=== PATIENT | female | born 1950 | race Asian ===

== ENCOUNTER 2018-01-03 14:45 | Emergency (ER) | payer MEDICARE, MEDICAID ==
[~2018-01-03] VITALS: Ht 152.4 cm; Wt 57.0 kg
[~2018-01-03 14:45] MED LIST: ASPI-611 PO; ATEN50TA2 PO; ATOR40TA PO; CLOP75TA15 PO; HYDR-3972 PO
[2018-01-03 16:45] LABS: BASOPHILS % (AUTO) 0.3 % (0-1); EOSINOPHILS # (AUTO) 0.1 X10'3 (0-0.9); EOSINOPHILS % (AUTO) 0.9 % (0-6); HEMATOCRIT 38.6 % (35.0-45.0); HEMOGLOBIN 13.1 g/dl (12.0-16.0); LYMPHOCYTES % (AUTO) 23.7 % (21-51); MEAN CORPUSCULAR HEMOGLOBIN 31.9 PG (27.0-31.0); MEAN CORPUSCULAR HGB CONC 33.8 % (33.0-36.5); MEAN CORPUSCULAR VOLUME 94.1 FL (78-98); MEAN PLATELET VOLUME 7.5 FL (7.4-10.4); MONOCYTES # (AUTO) 0.9 X10'3 (0-0.9); MONOCYTES % (AUTO) 11.3 % (2-12); NEUTROPHILS # (AUTO) 5.4 X10'3 (1.8-7.7); NEUTROPHILS % (AUTO) 63.8 % (42-75); PLATELET COUNT 176 X10'3 (140-440); RED CELL DISTRIBUTION WIDTH 13.9 % (11.5-14.5); WHITE BLOOD COUNT 8.4 X10'3 (4.5-11.0)
[2018-01-03 17:06] LABS: ALANINE AMINOTRANSFERASE 41 U/L (12-78); ALBUMIN 4.1 G/DL (3.4-5.0); ALBUMIN/GLOBULIN RATIO 0.9 (1.1-1.5); ALKALINE PHOSPHATASE 58 IU/L (46-116); ANION GAP 11 (8-16); ASPARTATE AMINO TRANSFERASE 43 U/L (10-37); BILIRUBIN,TOTAL 0.5 MG/DL (0.1-1.0); BLOOD UREA NITROGEN 19 MG/DL (7-18); BUN/CREATININE RATIO 19.2 (6.6-38.0); CHLORIDE 100 MMOL/L (99-107); CREATININE 0.99 MG/DL (0.40-0.90); GLUCOSE 109 MG/DL (70-104); POTASSIUM 4.4 MMOL/L (3.5-5.1); SODIUM 138 MMOL/L (135-145); TOTAL CARBON DIOXIDE 27.3 MMOL/L (24-32); TOTAL PROTEIN 8.5 G/DL (6.4-8.2); eGFR 56 ML/MIN
[2018-01-03] MEDS ORDERED: AZIT500T5 PO (21:04)
[2018-01-03 21:37] VITALS: BP 136/52
== END 2018-01-03 21:39 | disposition home or self-care (01) ==
LOC: ER 14:45
DX: J44.9 Chronic obstructive pulmonary disease, unspecified (principal); E78.00 Pure hypercholesterolemia, unspecified; I10 Essential (primary) hypertension; I25.2 Old myocardial infarction; G89.29 Other chronic pain; E11.9 Type 2 diabetes mellitus without complications; Z95.1 Presence of aortocoronary bypass graft; Z86.73 Personal history of transient ischemic attack (TIA), and cerebral infarction without residual deficits; Z79.82 Long term (current) use of aspirin; Z88.8 Allergy status to other drugs, medicaments and biological substances
CPT/HCPCS: 36415; 71046; 80053; 83605; 85025; 87040; 87502; 87503; 99285

== ENCOUNTER 2018-03-17 15:08 | Emergency (ER) | payer MEDICARE, MEDICAID ==
[~2018-03-17] VITALS: Ht 152.4 cm; Wt 55.0 kg
[~2018-03-17 15:08] MED LIST changes: +AZIT500T5 PO
[2018-03-17 15:45] LABS: BASOPHILS % (AUTO) 0.4 % (0-1); EOSINOPHILS # (AUTO) 0.1 X10'3 (0-0.9); EOSINOPHILS % (AUTO) 1.7 % (0-6); HEMATOCRIT 30.9 % (35.0-45.0); HEMOGLOBIN 10.3 g/dl (12.0-16.0); LYMPHOCYTES % (AUTO) 39.1 % (21-51); MEAN CORPUSCULAR HEMOGLOBIN 31.6 PG (27.0-31.0); MEAN CORPUSCULAR HGB CONC 33.3 % (33.0-36.5); MEAN CORPUSCULAR VOLUME 95.1 FL (78-98); MEAN PLATELET VOLUME 7.3 FL (7.4-10.4); MONOCYTES # (AUTO) 0.4 X10'3 (0-0.9); MONOCYTES % (AUTO) 5.4 % (2-12); NEUTROPHILS # (AUTO) 4.1 X10'3 (1.8-7.7); NEUTROPHILS % (AUTO) 53.4 % (42-75); PLATELET COUNT 208 X10'3 (140-440); RED BLOOD COUNT 3.25 X10'6 (4.20-5.60); RED CELL DISTRIBUTION WIDTH 14.2 % (11.5-14.5); WHITE BLOOD COUNT 7.6 X10'3 (4.5-11.0)
[2018-03-17 15:55] LABS: PARTIAL THROMBOPLASTIN TIME 24 SECONDS (22-32)
[2018-03-17 15:58] LABS: ALANINE AMINOTRANSFERASE 22 U/L (12-78); ALBUMIN 3.7 G/DL (3.4-5.0); ALBUMIN/GLOBULIN RATIO 1.2 (1.1-1.5); ALKALINE PHOSPHATASE 60 IU/L (46-116); ANION GAP 10 (8-16); ASPARTATE AMINO TRANSFERASE 17 U/L (10-37); BILIRUBIN,TOTAL 0.3 MG/DL (0.1-1.0); BLOOD UREA NITROGEN 24 MG/DL (7-18); BUN/CREATININE RATIO 18.5 (6.6-38.0); CALCIUM 8.7 MG/DL (8.5-10.1); CHLORIDE 103 MMOL/L (99-107); GLUCOSE 219 MG/DL (70-104); POTASSIUM 4.7 MMOL/L (3.5-5.1); SODIUM 137 MMOL/L (135-145); TOTAL CARBON DIOXIDE 24.4 MMOL/L (24-32); TOTAL PROTEIN 6.8 G/DL (6.4-8.2); eGFR 41 ML/MIN
[2018-03-17 16:03] LABS: TROPONIN I < 0.04 NG/ML (0.0-0.05)
[2018-03-17] MEDS ORDERED: ondansetron/PF 4mg/2ml inj IV ONE (19:00)
[2018-03-17] MEDS ORDERED: morphine 4 MG/ML inj SYRINge IV PRN (19:00)
[2018-03-17 19:41] VITALS: BP 188/55
== END 2018-03-17 23:47 | disposition home or self-care (01) ==
LOC: ER 15:09
DX: H53.2 Diplopia (principal); R51 Headache; E11.9 Type 2 diabetes mellitus without complications; I25.2 Old myocardial infarction; E78.00 Pure hypercholesterolemia, unspecified; J44.9 Chronic obstructive pulmonary disease, unspecified; G89.29 Other chronic pain; Z86.73 Personal history of transient ischemic attack (TIA), and cerebral infarction without residual deficits; Z95.1 Presence of aortocoronary bypass graft; Z79.02 Long term (current) use of antithrombotics/antiplatelets
CPT/HCPCS: 36415; 71045; 80053; 84484; 85025; 85610; 85730; 93005; 96374; 96375; 99285; J2270; J2405

== ENCOUNTER 2018-06-09 00:38 | Emergency (ER) | payer MEDICARE, MEDICAID ==
[~2018-06-09] VITALS: Ht 167.6 cm; Wt 40.0 kg
[2018-06-09 01:16] LABS: BASOPHILS # (AUTO) 0.1 X10'3 (0-0.2); BASOPHILS % (AUTO) 0.9 % (0-1); EOSINOPHILS # (AUTO) 0.1 X10'3 (0-0.9); EOSINOPHILS % (AUTO) 0.9 % (0-6); HEMATOCRIT 36.3 % (35.0-45.0); HEMOGLOBIN 12.2 g/dl (12.0-16.0); LYMPHOCYTES % (AUTO) 36.9 % (21-51); MEAN CORPUSCULAR HGB CONC 33.7 % (33.0-36.5); MEAN PLATELET VOLUME 7.9 FL (7.4-10.4); MONOCYTES # (AUTO) 0.5 X10'3 (0-0.9); MONOCYTES % (AUTO) 6.5 % (2-12); NEUTROPHILS # (AUTO) 4.6 X10'3 (1.8-7.7); NEUTROPHILS % (AUTO) 54.8 % (42-75); PLATELET COUNT 218 X10'3 (140-440); RED BLOOD COUNT 3.82 X10'6 (4.20-5.60); RED CELL DISTRIBUTION WIDTH 12.3 % (11.5-14.5); WHITE BLOOD COUNT 8.3 X10'3 (4.5-11.0)
[2018-06-09 02:02] LABS: CLARITY,URINE CLEAR (Clear); COLOR,URINE STRAW (Yellow); GLUCOSE, URINE NEGATIVE (Neg); KETONES,URINE NEGATIVE (Neg); LEUKOCYTE ESTERASE ,URINE SMALL (Neg); NITRITES, URINE NEGATIVE (Neg); OCCULT BLOOD,URINE NEGATIVE (Neg); PH,URINE 5.5 (4.8-8.0); PROTEIN,URINE NEGATIVE (Neg); UA COLLECTION TYPE VOIDED; UROBILINOGEN,URINE 0.2 E.U/dL (0.2-1.0)
[2018-06-09 02:03] LABS: BACTERIA,URINE NONE SEEN /HPF (Neg); RBC,URINE NONE SEEN /HPF (0-2); SQUAMOUS EPITHELIAL CELL,UR FEW /LPF (FEW)
[2018-06-09 02:04] LABS: URINE AMPHETAMINE SCREEN NEGATIVE (Neg); URINE BARBITUATE SCREEN NEGATIVE (Neg); URINE BENZODIAZEPINES SCREEN NEGATIVE (Neg); URINE CANNABINOID SCREEN NEGATIVE (Neg); URINE COCAINE SCREEN NEGATIVE (Neg); URINE METHADONE SCREEN NEGATIVE (Neg); URINE OPIATE SCREEN NEGATIVE (Neg); URINE PHENCYCLIDINE SCREEN NEGATIVE (Neg)
[2018-06-09 02:13] LABS: ALANINE AMINOTRANSFERASE 29 U/L (12-78); ALBUMIN 4.1 G/DL (3.4-5.0); ALBUMIN/GLOBULIN RATIO 1.1 (1.1-1.5); ALKALINE PHOSPHATASE 64 IU/L (46-116); ANION GAP 11 (8-16); ASPARTATE AMINO TRANSFERASE 21 U/L (10-37); BILIRUBIN,TOTAL 0.4 MG/DL (0.1-1.0); BLOOD UREA NITROGEN 20 MG/DL (7-18); BUN/CREATININE RATIO 17.4 (6.6-38.0); CALCIUM 9.4 MG/DL (8.5-10.1); CHLORIDE 104 MMOL/L (99-107); CREATININE 1.15 MG/DL (0.40-0.90); GLUCOSE 95 MG/DL (70-104); POTASSIUM 4.6 MMOL/L (3.5-5.1); SODIUM 140 MMOL/L (135-145); TOTAL CARBON DIOXIDE 24.6 MMOL/L (24-32); eGFR 47 ML/MIN
[2018-06-09 02:22] LABS: MAGNESIUM 1.9 MG/DL (1.5-2.4); PHOSPHORUS 4.1 MG/DL (2.3-4.5)
[2018-06-09 02:23] LABS: ETHANOL < 0.010 GM/DL (0.0-0.010)
[2018-06-09] MEDS ORDERED: hyDRALAzine 10mg tablet PO SCH (02:55)
[2018-06-09 03:56] VITALS: BP 169/64
== END 2018-06-09 04:05 | disposition home or self-care (01) ==
LOC: ER 00:38
DX: R53.1 Weakness (principal); E78.00 Pure hypercholesterolemia, unspecified; I10 Essential (primary) hypertension; I25.2 Old myocardial infarction; J44.9 Chronic obstructive pulmonary disease, unspecified; G89.29 Other chronic pain; F17.210 Nicotine dependence, cigarettes, uncomplicated; Z86.73 Personal history of transient ischemic attack (TIA), and cerebral infarction without residual deficits; Z88.5 Allergy status to narcotic agent; Z88.8 Allergy status to other drugs, medicaments and biological substances; Z79.82 Long term (current) use of aspirin; Z79.2 Long term (current) use of antibiotics; Z79.899 Other long term (current) drug therapy
CPT/HCPCS: 36415; 70450; 71045; 80053; 80305; 80320; 81001; 82948; 83735; 84100; 84443; 84484; 85025; 87088; 93005; 99285

== ENCOUNTER 2019-01-08 11:07 | Emergency (ER) | payer MEDICARE, MEDICAID ==
[~2019-01-08] VITALS: Ht 152.4 cm; Wt 54.5 kg
[2019-01-08 11:48] LABS: BASOPHILS % (AUTO) 0.6 % (0-1); EOSINOPHILS % (AUTO) 0.6 % (0-6); HEMATOCRIT 35.2 % (35.0-45.0); LYMPHOCYTES % (AUTO) 27.1 % (21-51); MEAN CORPUSCULAR HEMOGLOBIN 32.2 PG (27.0-31.0); MEAN CORPUSCULAR HGB CONC 34.1 g/dL (33.0-36.5); MEAN CORPUSCULAR VOLUME 94.3 FL (78-98); MEAN PLATELET VOLUME 7.4 FL (7.4-10.4); MONOCYTES # (AUTO) 0.4 X10'3 (0-0.9); MONOCYTES % (AUTO) 5.7 % (2-12); NEUTROPHILS # (AUTO) 4.9 X10'3 (1.8-7.7); PLATELET COUNT 221 X10'3 (140-440); RED BLOOD COUNT 3.74 X10'6 (4.20-5.60); RED CELL DISTRIBUTION WIDTH 13.1 % (11.5-14.5); WHITE BLOOD COUNT 7.5 X10'3 (4.5-11.0)
[2019-01-08 12:00] LABS: ALANINE AMINOTRANSFERASE 29 U/L (12-78); ALBUMIN 3.9 G/DL (3.4-5.0); ALBUMIN/GLOBULIN RATIO 1.1 (1.1-1.5); ALKALINE PHOSPHATASE 64 IU/L (46-116); ANION GAP 8 (8-16); ASPARTATE AMINO TRANSFERASE 21 U/L (10-37); BILIRUBIN,TOTAL 0.3 MG/DL (0.1-1.0); BLOOD UREA NITROGEN 15 MG/DL (7-18); BUN/CREATININE RATIO 13.8 (6.6-38.0); CALCIUM 9.3 MG/DL (8.5-10.1); CHLORIDE 101 MMOL/L (99-107); CREATININE 1.09 MG/DL (0.40-0.90); GLUCOSE 166 MG/DL (70-104); POTASSIUM 4.3 MMOL/L (3.5-5.1); SODIUM 138 MMOL/L (135-145); TOTAL CARBON DIOXIDE 29.4 MMOL/L (24-32); TOTAL PROTEIN 7.5 G/DL (6.4-8.2); eGFR 50 ML/MIN
[2019-01-08 12:07] LABS: MAGNESIUM 1.9 MG/DL (1.5-2.4)
[2019-01-08 13:08] VITALS: BP 150/62
== END 2019-01-08 13:10 | disposition home or self-care (01) ==
LOC: ER 11:07
DX: R07.89 Other chest pain (principal); I10 Essential (primary) hypertension; E78.00 Pure hypercholesterolemia, unspecified; I25.2 Old myocardial infarction; J44.9 Chronic obstructive pulmonary disease, unspecified; M19.90 Unspecified osteoarthritis, unspecified site; G89.29 Other chronic pain; Z95.1 Presence of aortocoronary bypass graft; Z86.73 Personal history of transient ischemic attack (TIA), and cerebral infarction without residual deficits; Z88.6 Allergy status to analgesic agent; Z79.82 Long term (current) use of aspirin
CPT/HCPCS: 36415; 71045; 80053; 83735; 83880; 84484; 85025; 93005; 99284

== ENCOUNTER 2019-12-30 06:31 | Inpatient (IN) | payer MEDICARE, MEDICAID ==
[2019-12-28 16:46] LABS: BASOPHILS # (AUTO) 0.1 X10'3 (0-0.2); BASOPHILS % (AUTO) 0.8 % (0-1); EOSINOPHILS # (AUTO) 0.1 X10'3 (0-0.9); EOSINOPHILS % (AUTO) 0.9 % (0-6); LYMPHOCYTES # (AUTO) 2.3 X10'3 (1.1-4.8); LYMPHOCYTES % (AUTO) 32.8 % (21-51); MEAN CORPUSCULAR VOLUME 94.1 FL (78-98); MEAN PLATELET VOLUME 7.8 FL (7.4-10.4); MONOCYTES # (AUTO) 0.4 X10'3 (0-0.9); MONOCYTES % (AUTO) 6.1 % (2-12); NEUTROPHILS # (AUTO) 4.2 X10'3 (1.8-7.7); NEUTROPHILS % (AUTO) 59.4 % (42-75); PRE OP HEMATOCRIT 33.9 % (35.0-45.0); PRE OP HEMOGLOBIN 11.5 g/dL (12.0-16.0); PRE OP PLATELET COUNT 221 X10'3 (140-440); RED BLOOD COUNT 3.61 X10'6 (4.20-5.60); RED CELL DISTRIBUTION WIDTH 13.4 % (11.5-14.5)
[2019-12-28 16:46] LABS: CLARITY,URINE CLEAR (Clear); COLOR,URINE YELLOW (Yellow); GLUCOSE, URINE NEGATIVE (Neg); KETONES,URINE NEGATIVE (Neg); LEUKOCYTE ESTERASE ,URINE SMALL (Neg); NITRITES, URINE NEGATIVE (Neg); OCCULT BLOOD,URINE NEGATIVE (Neg); PH,URINE 5.5 (4.8-8.0); PROTEIN,URINE NEGATIVE (Neg); UROBILINOGEN,URINE 0.2 E.U/dL (0.2-1.0)
[2019-12-28 16:47] LABS: UA COLLECTION TYPE CLN CATCH MIDSTREAM
[2019-12-28 16:51] LABS: BACTERIA,URINE FEW /HPF (Neg); MUCUS STRANDS FEW /LPF (Neg); RBC,URINE NONE SEEN /HPF (0-2); SQUAMOUS EPITHELIAL CELL,UR FEW /LPF (FEW)
[2019-12-28 16:57] LABS: PRE OP PROTIME 10.1 SECONDS (9.0-12.0)
[2019-12-28 17:10] LABS: ALBUMIN/GLOBULIN RATIO 1.1 (1.1-1.5); ALKALINE PHOSPHATASE 65 IU/L (46-116); BLOOD UREA NITROGEN 20 MG/DL (7-18); BUN/CREATININE RATIO 19.8 (6.6-38.0); CALCIUM 9.4 MG/DL (8.5-10.1); CHLORIDE 107 MMOL/L (99-107); CREATININE 1.01 MG/DL (0.40-0.90); PRE OP ALT 32 U/L (30-65); PRE OP ANION GAP 8 (8-16); PRE OP AST 24 U/L (10-37); PRE OP BILIRUB, TOTAL 0.3 MG/DL (0.0-1.0); PRE OP GLUCOSE 157 MG/DL (70-104); PRE OP POTASSIUM 4.5 MMOL/L (3.4-5.1); PRE OP SODIUM 144 MMOL/L (135-145); TOTAL CARBON DIOXIDE 29.5 MMOL/L (24-32); TOTAL PROTEIN 7.6 G/DL (6.4-8.2); eGFR 54 ML/MIN
[~2019-12-30] VITALS: Ht 152.4 cm; Wt 56.7 kg
[2019-12-30] VITALS (15 sets, daily range): BP systolic 121–180; BP diastolic 37–74
[~2019-12-30 06:31] MED LIST changes: +ALEN35TA21 PO; -ATEN50TA2 PO; -AZIT500T5 PO; +CARB-126 PO; +CHLO25TA11 PO; -HYDR-3972 PO; +LOSA100T57 PO; +LYR75C PO; +OXYC-511 PO; +TRAZ-251 PO; +cefazolin/dext.iso 2gm/50ml 50 ML IV ONE; +famotidine 20mg tablet PO ONE; +ringers solution, lacted 1,000 ML IV SCH
[2019-12-30] MEDS ORDERED: LIDOcaine 1% (10mg/ml) 2ml vial ONE (07:04)
[2019-12-30] MEDS ORDERED: heparin 10,000 units/1 ML INJ ONE (10:25)
[2019-12-30] MEDS ORDERED: ceFAZolin 1000mg inj ONE (10:26)
[2019-12-30] MEDS ORDERED: ringers solution, lacted 1,000 ML IV SCH (10:32)
[2019-12-30] MEDS ORDERED: morphine 4 MG/ML inj SYRINge IV PRN (10:35)
[2019-12-30] MEDS ORDERED: ondansetron/PF 4mg/2ml inj IV PRN (10:35)
[2019-12-30] MEDS ORDERED: meperidine/PF 25mg/ml syringe IV PRN ×3 (10:35)
[2019-12-30] MEDS ORDERED: morphine 2 MG/ML inj. syringe IV PRN (10:35)
[2019-12-30] MEDS ORDERED: proCHLORperazine 10 MG/2 ml inj IV PRN (10:35)
[2019-12-30] MEDS ORDERED: sevoflurane 250ml liquid IH ONE (11:03)
[2019-12-30] MEDS ORDERED: nitroPRUSSIDE 20mg/NS 100mL (0.2mg/mL) VIAL IV ONE (11:03)
[2019-12-30] MEDS ORDERED: fentaNYL/PF 50MCG/1 ML 2ML syringe ONE (11:07)
[2019-12-30] MEDS ORDERED: midazolam 2 mg/2 ml injection ONE (11:07)
[2019-12-30] MEDS ORDERED: labetalol 20mg/4ml (5mg/ml) syringe IV ONE (11:56)
[2019-12-30] MEDS ORDERED: rocuronium 10mg/ml inj IV ONE (11:56)
[2019-12-30] MEDS ORDERED: propofol inj 20 ML IV ONE (11:56)
[2019-12-30] MEDS ORDERED: heparin 1,000unit/ml 10ml vial 10 ML ONE (13:39)
--- NOTE | 2019-12-30 14:15 | NUR ---
Received from OR via BED, accompanied by Anesthesiologist DR MAY- and report given by Anesthesiolgist. PATIENT WAKING UP, DENIES PAIN, V/S WNL, NEUROVASCULAR CHECKS INTACT, 20G PIV LUE, ARTLINE LUE,SCD ON, PROVENA DRESSINGS TO LEFT LEG AND GROIN X2 CDI WITH NO LEAKS DETECTED.
[2019-12-30] MEDS ORDERED: oxyCODONE/APAP 10/325mg tablet PO PRN (14:35)
--- NOTE | 2019-12-30 14:55 | NUR ---
PATIENT A&OX4, MEDS GIVEN FOR PAIN SEE EMAR, V/S WNL, NEUROVASCULAR CHECKS INTACT, 20G PIV LUE, ARTLINE LUE,SCD ON, PROVENA DRESSINGS TO LEFT LEG AND GROIN X2 CDI WITH NO LEAKS DETECTED. F/C DRAINING CLEAR YELLOW URINE. PATIENT TAKEN TO 2012 WITH ALL BELONGINGS AND HOOKED UP TO MONITORS IN ROOM AND REPORT GIVEN TO RN WHO HAS TAKEN OVER PATIENT CARE
[2019-12-30] MEDS ORDERED: nitroPRUSSIDE in NS 100 ML IV PRN (15:15)
[2019-12-30] MEDS: chlorthalidone 25mg tablet PO SCH (16:28)
[2019-12-30] MEDS: losartan 50mg tablet PO SCH (16:28)
[2019-12-30] MEDS: pregabalin 75mg capsule PO SCH (16:29)
[2019-12-30] MEDS: carbidopa/levodopa 25/100mg CR tablet PO SCH (16:29)
[2019-12-30] MEDS: atorvastatin 20mg tablet PO SCH (16:34)
--- NOTE | 2019-12-30 18:15 | NUR ---
received report from IRON Ignacio
[2019-12-30 19:40] LABS: BASOPHILS # (AUTO) 0.1 X10'3 (0-0.2); BASOPHILS % (AUTO) 0.9 % (0-1); EOSINOPHILS % (AUTO) 0.2 % (0-6); HEMOGLOBIN 7.8 g/dl (12.0-16.0); LYMPHOCYTES # (AUTO) 1.7 X10'3 (1.1-4.8); LYMPHOCYTES % (AUTO) 18.1 % (21-51); MEAN CORPUSCULAR HEMOGLOBIN 31.8 PG (27.0-31.0); MEAN CORPUSCULAR HGB CONC 34.1 g/dL (33.0-36.5); MEAN CORPUSCULAR VOLUME 93.4 FL (78-98); MEAN PLATELET VOLUME 7.6 FL (7.4-10.4); MONOCYTES # (AUTO) 0.5 X10'3 (0-0.9); MONOCYTES % (AUTO) 5.5 % (2-12); NEUTROPHILS # (AUTO) 7.3 X10'3 (1.8-7.7); NEUTROPHILS % (AUTO) 75.3 % (42-75); PLATELET COUNT 157 X10'3 (140-440); RED BLOOD COUNT 2.46 X10'6 (4.20-5.60); RED CELL DISTRIBUTION WIDTH 13.3 % (11.5-14.5); WHITE BLOOD COUNT 9.7 X10'3 (4.5-11.0)
[2019-12-30 19:54] LABS: ALANINE AMINOTRANSFERASE 14 U/L (12-78); ALBUMIN 3.2 G/DL (3.4-5.0); ALBUMIN/GLOBULIN RATIO 1.3 (1.1-1.5); ALKALINE PHOSPHATASE 44 IU/L (46-116); ANION GAP 7 (8-16); ASPARTATE AMINO TRANSFERASE 15 U/L (10-37); BILIRUBIN,TOTAL 0.3 MG/DL (0.1-1.0); BLOOD UREA NITROGEN 18 MG/DL (7-18); BUN/CREATININE RATIO 20.2 (6.6-38.0); CALCIUM 8.4 MG/DL (8.5-10.1); CHLORIDE 107 MMOL/L (99-107); CREATININE 0.89 MG/DL (0.40-0.90); GLUCOSE 124 MG/DL (70-104); MAGNESIUM 1.8 MG/DL (1.5-2.4); PHOSPHORUS 4.7 MG/DL (2.3-4.5); POTASSIUM 4.6 MMOL/L (3.5-5.1); SODIUM 141 MMOL/L (135-145); TOTAL CARBON DIOXIDE 27.2 MMOL/L (24-32); TOTAL PROTEIN 5.6 G/DL (6.4-8.2); eGFR 63 ML/MIN
[2019-12-30] MEDS: ringers solution, lacted 1,000 ML IV SCH (20:23)
[2019-12-30] MEDS: traZODone 50mg tablet PO SCH (21:13)
[2019-12-31] VITALS (27 sets, daily range): BP systolic 107–159; BP diastolic 27–44
[2019-12-31] MEDS: carbidopa/levodopa 25/100mg CR tablet PO SCH ×3 (00:31→17:27)
[2019-12-31] MEDS: oxyCODONE/APAP 10/325mg tablet PO PRN ×2 (00:32→12:12)
[2019-12-31 06:09] LABS: BASOPHILS % (AUTO) 0.6 % (0-1); EOSINOPHILS % (AUTO) 0.2 % (0-6); HEMOGLOBIN 7.3 g/dl (12.0-16.0); LYMPHOCYTES # (AUTO) 1.2 X10'3 (1.1-4.8); LYMPHOCYTES % (AUTO) 16.7 % (21-51); MEAN CORPUSCULAR HEMOGLOBIN 31.7 PG (27.0-31.0); MEAN CORPUSCULAR HGB CONC 33.9 g/dL (33.0-36.5); MEAN CORPUSCULAR VOLUME 93.5 FL (78-98); MEAN PLATELET VOLUME 7.7 FL (7.4-10.4); MONOCYTES # (AUTO) 0.5 X10'3 (0-0.9); MONOCYTES % (AUTO) 7.5 % (2-12); NEUTROPHILS # (AUTO) 5.3 X10'3 (1.8-7.7); PLATELET COUNT 148 X10'3 (140-440); RED BLOOD COUNT 2.31 X10'6 (4.20-5.60); RED CELL DISTRIBUTION WIDTH 13.3 % (11.5-14.5); WHITE BLOOD COUNT 7.1 X10'3 (4.5-11.0)
[2019-12-31 06:23] LABS: HEMATOCRIT 21.6 % (35.0-45.0)
--- NOTE | 2019-12-31 06:31 | NUR ---
gave report to Art, RN
[2019-12-31 06:40] LABS: ANION GAP 4 (8-16); BLOOD UREA NITROGEN 19 MG/DL (7-18); BUN/CREATININE RATIO 17.3 (6.6-38.0); CALCIUM 7.8 MG/DL (8.5-10.1); CHLORIDE 108 MMOL/L (99-107); GLUCOSE 130 MG/DL (70-104); POTASSIUM 4.6 MMOL/L (3.5-5.1); SODIUM 140 MMOL/L (135-145); TOTAL CARBON DIOXIDE 27.9 MMOL/L (24-32); eGFR 49 ML/MIN
[2019-12-31] MEDS: aspirin 81mg tablet.DR PO SCH (08:34)
[2019-12-31] MEDS: clopidogrel 75mg tablet PO SCH (08:34)
[2019-12-31] MEDS: chlorthalidone 25mg tablet PO SCH (08:35)
[2019-12-31] MEDS: pregabalin 75mg capsule PO SCH (08:35)
[2019-12-31] MEDS: losartan 50mg tablet PO SCH (08:35)
[2019-12-31] MEDS: atorvastatin 20mg tablet PO SCH (08:35)
[2019-12-31 12:03] LABS: CLARITY,URINE CLEAR (Clear); COLOR,URINE YELLOW (Yellow); GLUCOSE, URINE NEGATIVE (Neg); KETONES,URINE NEGATIVE (Neg); LEUKOCYTE ESTERASE ,URINE NEGATIVE (Neg); NITRITES, URINE NEGATIVE (Neg); OCCULT BLOOD,URINE NEGATIVE (Neg); PH,URINE 5.5 (4.8-8.0); PROTEIN,URINE NEGATIVE (Neg); UROBILINOGEN,URINE 0.2 E.U/dL (0.2-1.0)
[2019-12-31 12:23] LABS: UA COLLECTION TYPE NON-SPECIFIED
[2019-12-31 12:44] LABS: HEMOGLOBIN 7.1 g/dl (12.0-16.0); MEAN CORPUSCULAR HEMOGLOBIN 31.6 PG (27.0-31.0); MEAN CORPUSCULAR HGB CONC 33.9 g/dL (33.0-36.5); MEAN CORPUSCULAR VOLUME 93.3 FL (78-98); MEAN PLATELET VOLUME 7.6 FL (7.4-10.4); PLATELET COUNT 144 X10'3 (140-440); RED BLOOD COUNT 2.24 X10'6 (4.20-5.60); RED CELL DISTRIBUTION WIDTH 13.3 % (11.5-14.5); WHITE BLOOD COUNT 7.3 X10'3 (4.5-11.0)
[2019-12-31 12:48] LABS: HEMATOCRIT 20.9 % (35.0-45.0)
[2019-12-31 12:49] LABS: UA EOSINOPHILS NO EOS /HPF
[2019-12-31] MEDS: ringers solution, lacted 1,000 ML IV SCH (14:22)
[2019-12-31 17:57] LABS: HEMATOCRIT 26.1 % (35.0-45.0); MEAN CORPUSCULAR HEMOGLOBIN 31.7 PG (27.0-31.0); MEAN CORPUSCULAR HGB CONC 34.5 g/dL (33.0-36.5); MEAN CORPUSCULAR VOLUME 91.7 FL (78-98); MEAN PLATELET VOLUME 7.8 FL (7.4-10.4); PLATELET COUNT 136 X10'3 (140-440); RED BLOOD COUNT 2.85 X10'6 (4.20-5.60); RED CELL DISTRIBUTION WIDTH 13.8 % (11.5-14.5); WHITE BLOOD COUNT 7.9 X10'3 (4.5-11.0)
--- NOTE | 2019-12-31 18:05 | NUR ---
Patient in room CICU 2012. I have received report from day shift RN and had the opportunity to ask questions and assume patient care.
[2019-12-31] MEDS: traZODone 50mg tablet PO SCH (20:02)
--- NOTE | 2019-12-31 20:40 | NUR ---
Left wrist arterial line removed, cannula intact without difficulty pressure applied for 10 min without bleeding noted afterward, pressure dressing applied per standard procedure. Patient tolerated well without report of discomfort, this RN will continue to monitor site.
[2020-01-01] VITALS (16 sets, daily range): BP systolic 93–157; BP diastolic 25–50
[2020-01-01] MEDS: carbidopa/levodopa 25/100mg CR tablet PO SCH ×4 (00:09→23:28)
[2020-01-01] MEDS: ringers solution, lacted 1,000 ML IV SCH ×3 (00:09→20:35)
[2020-01-01] MEDS: oxyCODONE/APAP 10/325mg tablet PO PRN ×2 (01:25→23:14)
--- NOTE | 2020-01-01 06:17 | NUR ---
Problems reprioritized. Patient report given, questions answered & plan of care reviewed with ASYA PERDUE.
[2020-01-01 07:34] LABS: BASOPHILS % (AUTO) 0.4 % (0-1); EOSINOPHILS % (AUTO) 0.5 % (0-6); HEMATOCRIT 25.2 % (35.0-45.0); HEMOGLOBIN 8.6 g/dl (12.0-16.0); LYMPHOCYTES # (AUTO) 1.6 X10'3 (1.1-4.8); LYMPHOCYTES % (AUTO) 19.2 % (21-51); MEAN CORPUSCULAR HEMOGLOBIN 31.4 PG (27.0-31.0); MEAN CORPUSCULAR HGB CONC 34.2 g/dL (33.0-36.5); MEAN CORPUSCULAR VOLUME 91.7 FL (78-98); MEAN PLATELET VOLUME 7.5 FL (7.4-10.4); MONOCYTES # (AUTO) 0.7 X10'3 (0-0.9); MONOCYTES % (AUTO) 8.5 % (2-12); NEUTROPHILS # (AUTO) 6.1 X10'3 (1.8-7.7); NEUTROPHILS % (AUTO) 71.4 % (42-75); PLATELET COUNT 120 X10'3 (140-440); RED BLOOD COUNT 2.75 X10'6 (4.20-5.60); RED CELL DISTRIBUTION WIDTH 13.8 % (11.5-14.5); WHITE BLOOD COUNT 8.6 X10'3 (4.5-11.0)
[2020-01-01 07:56] LABS: ALANINE AMINOTRANSFERASE 6 U/L (12-78); ALBUMIN 2.7 G/DL (3.4-5.0); ALKALINE PHOSPHATASE 48 IU/L (46-116); ANION GAP 1 (8-16); ASPARTATE AMINO TRANSFERASE 20 U/L (10-37); BILIRUBIN,TOTAL 0.8 MG/DL (0.1-1.0); BLOOD UREA NITROGEN 15 MG/DL (7-18); BUN/CREATININE RATIO 13.8 (6.6-38.0); CALCIUM 8.2 MG/DL (8.5-10.1); CHLORIDE 107 MMOL/L (99-107); CREATININE 1.09 MG/DL (0.40-0.90); GLUCOSE 108 MG/DL (70-104); MAGNESIUM 1.6 MG/DL (1.5-2.4); PHOSPHORUS 3.6 MG/DL (2.3-4.5); POTASSIUM 4.3 MMOL/L (3.5-5.1); SODIUM 138 MMOL/L (135-145); TOTAL CARBON DIOXIDE 29.6 MMOL/L (24-32); TOTAL PROTEIN 5.4 G/DL (6.4-8.2); eGFR 49 ML/MIN
[2020-01-01] MEDS: chlorthalidone 25mg tablet PO SCH (08:00)
[2020-01-01] MEDS: losartan 50mg tablet PO SCH (08:00)
[2020-01-01] MEDS: aspirin 81mg tablet.DR PO SCH (08:16)
[2020-01-01] MEDS: atorvastatin 20mg tablet PO SCH (08:16)
[2020-01-01] MEDS: pregabalin 75mg capsule PO SCH (08:16)
[2020-01-01] MEDS: clopidogrel 75mg tablet PO SCH (08:16)
--- NOTE | 2020-01-01 09:36 | NUR ---
Called Dr. Mccann in regards to low BP, no PT orders, and possible transfer orders but did not get an answer. Will try again
--- NOTE | 2020-01-01 13:45 | NUR ---
Gave report to IRON rodriguez. Pt transferred to surgical unit via surg bed with all belongings. VSS. Pt alert, talking, stable for transfer. Tele placed in ICU
--- NOTE | 2020-01-01 13:47 | NUR ---
Received from critical care, report from Emily. Oriented to room, unit, and plan of care. Tele #[id number].
--- NOTE | 2020-01-01 18:15 | NUR ---
Patient in room [facility]. I have received report from Raquel PERDUE and had the opportunity to ask questions and assume patient care.
--- NOTE | 2020-01-01 18:36 | NUR ---
Problems reprioritized. Patient report given, questions answered & plan of care reviewed with
[2020-01-01] MEDS: traZODone 50mg tablet PO SCH (20:34)
[2020-01-02] VITALS: BP 165/42
[2020-01-02] MEDS: ringers solution, lacted 1,000 ML IV SCH (05:40)
--- NOTE | 2020-01-02 06:52 | NUR ---
Patient in room [facility]. I have received report from IRON Clifford and had the opportunity to ask questions and assume patient care.
[2020-01-02 07:00] VITALS: BP 153/43
[2020-01-02] MEDS: losartan 50mg tablet PO SCH (10:04)
[2020-01-02] MEDS: pregabalin 75mg capsule PO SCH (10:04)
[2020-01-02] MEDS: atorvastatin 20mg tablet PO SCH (10:05)
[2020-01-02] MEDS: chlorthalidone 25mg tablet PO SCH (10:05)
[2020-01-02] MEDS: aspirin 81mg tablet.DR PO SCH (10:05)
[2020-01-02] MEDS: carbidopa/levodopa 25/100mg CR tablet PO SCH ×2 (10:05→16:36)
[2020-01-02] MEDS: clopidogrel 75mg tablet PO SCH (10:05)
[2020-01-02 12:00] VITALS: BP 146/39
[2020-01-02] MEDS: magnesium hydroxide 30ml (MOM) UD suspension PO PRN (12:09)
--- NOTE | 2020-01-02 14:58 | NUR ---
Discontinued velasco catheter without incident, pt tolerated procedure well. Zeynep GREGORIO
--- NOTE | 2020-01-02 16:54 | NUR ---
Hospitalist notified of ABG results Addendum: 01/02/20 at 1805 by Michelle Funez RN Disregard. Note entered on wrong pt
[2020-01-02 18:00] VITALS: BP 159/55
--- NOTE | 2020-01-02 18:09 | NUR ---
Problems reprioritized. Patient report given, questions answered & plan of care reviewed with IRON Zuniga.
--- NOTE | 2020-01-02 18:09 | NUR ---
Patient in room [facility]. I have received report from Michelle PERDUE and had the opportunity to ask questions and assume patient care.
[2020-01-02] MEDS: traZODone 50mg tablet PO SCH (21:26)
[2020-01-02] MEDS: oxyCODONE/APAP 10/325mg tablet PO PRN (21:34)
[2020-01-03] VITALS: BP 93/32
[2020-01-03] MEDS: carbidopa/levodopa 25/100mg CR tablet PO SCH ×3 (00:29→17:03)
[2020-01-03 00:30] VITALS: BP 107/46
--- NOTE | 2020-01-03 06:28 | NUR ---
Problems reprioritized. Patient report given, questions answered & plan of care reviewed with Tereso RN.
--- NOTE | 2020-01-03 07:04 | NUR ---
Patient in room [facility]. I have received report from Nadia PERDUE and had the opportunity to ask questions and assume patient care.
[2020-01-03 07:30] VITALS: BP 152/47
[2020-01-03] MEDS: pregabalin 75mg capsule PO SCH (08:37)
[2020-01-03] MEDS: clopidogrel 75mg tablet PO SCH (08:38)
[2020-01-03] MEDS: chlorthalidone 25mg tablet PO SCH (08:40)
[2020-01-03] MEDS: losartan 50mg tablet PO SCH (08:40)
[2020-01-03] MEDS: aspirin 81mg tablet.DR PO SCH (08:40)
[2020-01-03] MEDS: atorvastatin 20mg tablet PO SCH (08:42)
[2020-01-03 12:00] VITALS: BP 137/58
--- NOTE | 2020-01-03 18:20 | NUR ---
Patient in room [facility]. I have received report from Tereso Foster and had the opportunity to ask questions and assume patient care. Addendum: 01/03/20 at 1948 by Joyce Leroy RN Amended: Links added.
--- NOTE | 2020-01-03 18:35 | NUR ---
Problems reprioritized. Patient report given, questions answered & plan of care reviewed with Joyce PERDUE/Deborah GREGORIO.
--- NOTE | 2020-01-03 19:23 | NUR ---
Received report from RN Tereso, Pt resting comfortably and in no distress. Was able to ask questions and verify pt needs. RAVI Cabrera
[2020-01-03 20:00] VITALS: BP 118/53
[2020-01-03] MEDS: magnesium hydroxide 30ml (MOM) UD suspension PO PRN (22:13)
[2020-01-03] MEDS: oxyCODONE/APAP 10/325mg tablet PO PRN (22:14)
[2020-01-03] MEDS: traZODone 50mg tablet PO SCH (22:15)
[2020-01-04] VITALS: BP 100/29
[2020-01-04] MEDS: carbidopa/levodopa 25/100mg CR tablet PO SCH ×4 (00:35→23:48)
--- NOTE | 2020-01-04 05:53 | NUR ---
Student documentation: I have reviewed and agree with all interventions, assessments performed and documented by Deborah Cormier Student. Addendum: 01/04/20 at 0555 by Joyce Leroy RN Amended: Links added.
--- NOTE | 2020-01-04 05:54 | NUR ---
Student Medication Administration: For this medication-pass time frame, all medication were reviewed, dispensed, administered and documented per hospital policy by Deborah Cormier Rn student. Addendum: 01/04/20 at 0555 by Joyce Leroy RN Amended: Links added.
--- NOTE | 2020-01-04 06:51 | NUR ---
Problems reprioritized. Patient report given, questions answered & plan of care reviewed with Tereso Foster. Addendum: 01/04/20 at 0651 by Joyce Leroy RN Amended: Links added.
--- NOTE | 2020-01-04 07:01 | NUR ---
Patient in room [facility]. I have received report from JOSE DANIEL PERDUE and had the opportunity to ask questions and assume patient care.
[2020-01-04 07:45] VITALS: BP 138/44
[2020-01-04] MEDS: clopidogrel 75mg tablet PO SCH (08:25)
[2020-01-04] MEDS: pregabalin 75mg capsule PO SCH (08:25)
[2020-01-04] MEDS: losartan 50mg tablet PO SCH (08:25)
[2020-01-04] MEDS: chlorthalidone 25mg tablet PO SCH (08:25)
[2020-01-04] MEDS: atorvastatin 20mg tablet PO SCH (08:25)
[2020-01-04] MEDS: aspirin 81mg tablet.DR PO SCH (08:25)
[2020-01-04 11:00] VITALS: BP 89/36
--- NOTE | 2020-01-04 12:30 | NUR ---
received report from IRON Rider
--- NOTE | 2020-01-04 18:16 | NUR ---
Gave report to IRON Rider
--- NOTE | 2020-01-04 18:20 | NUR ---
reviewed student Addendum: 01/04/20 at 1821 by Diamond aCrrasquillo INSTRUCTOR RN reviewed student nurse charting
--- NOTE | 2020-01-04 18:32 | NUR ---
DM Consult: Pt A1C less than 7 and not appropriate for DM ed at this time. Pt admit s/p left femoropopliteal bypass w/ extensive cardiac hx per MD. Pt placed on pureed/heart healthy diet w/ hx CVA and delayed swallowing but no APPRENTICE PHOTOGRAPHER BSS ordered. RD recommended APPRENTICE PHOTOGRAPHER BSS to determine diet recs since pt has to take pills w/ applesauce per RN. PO 25% avg meals so far this admit fluctuating not meeting needs. Will monitor for ONS recs pending APPRENTICE PHOTOGRAPHER BSS. LBM 01/02. Currently only checking Glu for accuchecks; no additional labs. Will continue to monitor for additional protein needs post-op. Rec: 1. advance diet per APPRENTICE PHOTOGRAPHER recs to heart healthy/carb controlled; encourage PO 2. monitor for ONS needs pending APPRENTICE PHOTOGRAPHER recs 3. routine bowel care 4. MVI for healing needs once sure safe PO per MD approval 5. weekly wts Addendum: 01/04/20 at [address] Amended: Links added.
--- NOTE | 2020-01-04 18:47 | NUR ---
Patient in room [facility]. I have received report from PAIGE PERDUE and had the opportunity to ask questions and assume patient care. Addendum: 01/04/20 at 1848 by Jojo Maza RN Amended: Links added.
--- NOTE | 2020-01-04 18:49 | NUR ---
Patient in room [facility]. I have received report from PAIGE PERDUE and had the opportunity to ask questions and assume patient care. Addendum: 01/04/20 at 1849 by Joyce Leroy RN Amended: Links added.
--- NOTE | 2020-01-04 18:51 | NUR ---
Problems reprioritized. Patient report given, questions answered & plan of care reviewed with Joyce PERDUE.
--- NOTE | 2020-01-04 19:28 | NUR ---
Problems reprioritized. Patient report given, questions answered & plan of care reviewed with KELLEY PERDUE. Addendum: 01/04/20 at 1929 by Joyce Leroy RN Amended: Links added.
[2020-01-04 20:00] VITALS: BP 123/38
[2020-01-04] MEDS: traZODone 50mg tablet PO SCH (20:39)
--- NOTE | 2020-01-04 21:42 | NUR ---
Patient in room [facility]. I have received report from IRON Cook and had the opportunity to ask questions and assume patient care. Addendum: 01/04/20 at 2143 by Mojgan Goodman RN Amended: Links added.
[2020-01-05 00:36] VITALS: BP 125/44
--- NOTE | 2020-01-05 06:17 | NUR ---
Problems reprioritized. Patient report given, questions answered & plan of care reviewed with IRON Nichols. Addendum: 01/05/20 at 0618 by Mojgan Goodman RN Amended: Links added.
--- NOTE | 2020-01-05 07:00 | NUR ---
pt refused accu check, insists she is not diabetic. Addendum: 01/05/20 at 1112 by Magdalena Romero RN Amended: Links added.
--- NOTE | 2020-01-05 07:10 | NUR ---
Patient in room [facility]. I have received report from Mojgan PERDUE and had the opportunity to ask questions and assume patient care.
[2020-01-05 08:00] VITALS: BP 126/34
[2020-01-05] MEDS: chlorthalidone 25mg tablet PO SCH (08:00)
[2020-01-05] MEDS: losartan 50mg tablet PO SCH (08:05)
[2020-01-05] MEDS: clopidogrel 75mg tablet PO SCH (08:05)
[2020-01-05] MEDS: carbidopa/levodopa 25/100mg CR tablet PO SCH (08:05)
[2020-01-05] MEDS: pregabalin 75mg capsule PO SCH (08:05)
[2020-01-05] MEDS: aspirin 81mg tablet.DR PO SCH (08:05)
[2020-01-05] MEDS: atorvastatin 20mg tablet PO SCH (08:06)
[2020-01-05 11:00] VITALS: BP 119/47
--- NOTE | 2020-01-05 12:52 | NUR ---
F/u: Pt advanced to mechanical soft/grind all/thin per MANAGER CONSUMER INSIGHTS recs. Ensure Enlive TIDWM added given pt additional protein needs post-op. MD notified. Will monitor for ONS acceptance. Rec: 1. advance diet to mechanical soft/grind/thin liquid/carb controlled per MANAGER CONSUMER INSIGHTS recs; encourage PO 2. Ensure Enlive TIDWM 3. routine bowel care 4. MVI for healing needs once sure safe PO per MD approval 5. weekly wts Addendum: 01/05/20 at [address] Amended: Links added.
[2020-01-05] MEDS ORDERED: lactose-reduced food (Ensure Enlive) - 237ml bottle PO SCH (13:00)
--- NOTE | 2020-01-05 14:45 | NUR ---
Problems reprioritized. Patient report given, questions answered & plan of care reviewed with Lisandra Foster at [facility]. Pt is A & O x3, she is not happy about going to rehab but states understanding of why she is going. Pt's belongings packed by staff and will be send to [facility] with transport staff member.
--- NOTE | 2020-01-05 15:25 | NUR ---
Pt DC to [facility]. Pt A & O x3, pt stable and in no apparent distress. Report was called to [facility] and a yellow envelope send with [employer] to [facility] for pt's file. Pt's belongings were packed and bagged, carried out by [employer]'s drive away driver. Pt transferred to a wheel chair and taken via [employer]. Pt's family notified of transfer. Spoke to Elsy the daughter in law aka inpatient care manager rn. Family will go visit her at [facility].
== END 2020-01-05 15:39 | DRG 271 ==
LOC: PAS IN 06:31 → EDSTATUS 08:45 → CICU 2S 14:58 → SUR 3N 01-01 13:35
PROVIDERS: ADMIT Surgery; ATTEND Surgery
PROC: 04CN0ZZ Extirpation of Matter from Left Popliteal Artery, Open Approach (ICD-10-PCS; 2019-12-30)
PROC: 04UN0JZ Supplement Left Popliteal Artery with Synthetic Substitute, Open Approach (ICD-10-PCS; 2019-12-30)
PROC: 041L0JL Bypass Left Femoral Artery to Popliteal Artery with Synthetic Substitute, Open Approach (ICD-10-PCS; 2019-12-30)
PROC: 04CL0ZZ Extirpation of Matter from Left Femoral Artery, Open Approach (ICD-10-PCS; principal; 2019-12-30 11:03)
PROC: 30233N1 Transfusion of Nonautologous Red Blood Cells into Peripheral Vein, Percutaneous Approach (ICD-10-PCS; 2019-12-31)
PROC: 04CJ0ZZ Extirpation of Matter from Left External Iliac Artery, Open Approach (ICD-10-PCS; 2019-12-31)
DX: E11.51 Type 2 diabetes mellitus with diabetic peripheral angiopathy without gangrene (principal); D62 Acute posthemorrhagic anemia; I77.89 Other specified disorders of arteries and arterioles; J40 Bronchitis, not specified as acute or chronic; I70.1 Atherosclerosis of renal artery; I67.1 Cerebral aneurysm, nonruptured; E78.00 Pure hypercholesterolemia, unspecified; I10 Essential (primary) hypertension; I25.10 Atherosclerotic heart disease of native coronary artery without angina pectoris; M19.90 Unspecified osteoarthritis, unspecified site; Z80.1 Family history of malignant neoplasm of trachea, bronchus and lung; Z86.73 Personal history of transient ischemic attack (TIA), and cerebral infarction without residual deficits; Z87.891 Personal history of nicotine dependence; Z95.1 Presence of aortocoronary bypass graft
CPT/HCPCS: 36415; 36430; 80048; 80053; 81001; 81003; 82570; 82948; 83036; 83735; 84100; 84300; 85025; 85027; 85610; 85730; 86885; 86900; 86901; 86920; 87081; 87088; 87207; 92508; 92616; 97110; 97116; 97161; 97530; A4618; A6258; A7000; C1758; C1768; G0378; J0690; J1644; J2001; J2250; J2270; J2704; J3010; J3490; J7040; J7120; P9016

== ENCOUNTER 2020-04-11 14:45 | Observation (INO) | payer MEDICARE, MEDICAID ==
[2020-04-06 14:24] LABS: BASOPHILS # (AUTO) 0.1 X10'3 (0-0.2); EOSINOPHILS # (AUTO) 0.1 X10'3 (0-0.9); EOSINOPHILS % (AUTO) 1.7 % (0-6); HEMATOCRIT 30.2 % (35.0-45.0); HEMOGLOBIN 9.8 g/dl (12.0-16.0); LYMPHOCYTES # (AUTO) 1.8 X10'3 (1.1-4.8); LYMPHOCYTES % (AUTO) 35.3 % (21-51); MEAN CORPUSCULAR HEMOGLOBIN 31.2 PG (27.0-31.0); MEAN CORPUSCULAR HGB CONC 32.6 g/dL (33.0-36.5); MEAN CORPUSCULAR VOLUME 95.8 FL (78-98); MEAN PLATELET VOLUME 7.6 FL (7.4-10.4); MONOCYTES # (AUTO) 0.4 X10'3 (0-0.9); MONOCYTES % (AUTO) 7.5 % (2-12); NEUTROPHILS # (AUTO) 2.8 X10'3 (1.8-7.7); NEUTROPHILS % (AUTO) 54.5 % (42-75); PLATELET COUNT 212 X10'3 (140-440); RED BLOOD COUNT 3.15 X10'6 (4.20-5.60); RED CELL DISTRIBUTION WIDTH 13.7 % (11.5-14.5); WHITE BLOOD COUNT 5.2 X10'3 (4.5-11.0)
[2020-04-06 14:35] LABS: ALBUMIN 3.8 G/DL (3.4-5.0); ANION GAP 7 (8-16); BLOOD UREA NITROGEN 27 MG/DL (7-18); BUN/CREATININE RATIO 22.9 (6.6-38.0); CALCIUM 8.8 MG/DL (8.5-10.1); CHLORIDE 108 MMOL/L (99-107); CREATININE 1.18 MG/DL (0.40-0.90); GLUCOSE 106 MG/DL (70-104); POTASSIUM 4.6 MMOL/L (3.5-5.1); SODIUM 142 MMOL/L (135-145); TOTAL CARBON DIOXIDE 27.5 MMOL/L (24-32); eGFR 45 ML/MIN
[2020-04-06 14:39] LABS: PARTIAL THROMBOPLASTIN TIME 24 SECONDS (22-32)
[~2020-04-11] VITALS: Ht 152.4 cm; Wt 57.1 kg
[2020-04-11] VITALS (11 sets, daily range): BP systolic 147–187; BP diastolic 41–61
--- NOTE | 2020-04-11 11:30 | NUR ---
PATIENT WC TO SON FOR DISCHARGE
[~2020-04-11 14:45] MED LIST changes: -ALEN35TA21 PO; -cefazolin/dext.iso 2gm/50ml 50 ML IV ONE; -famotidine 20mg tablet PO ONE; -ringers solution, lacted 1,000 ML IV SCH
[2020-04-11] MEDS ORDERED: diphenhydrAMINE 25mg capsule PO PRN (15:15)
[2020-04-11] MEDS ORDERED: normal saline 1,000 ML IV SCH (15:15)
[2020-04-11] MEDS ORDERED: LORazepam 0.5 MG tablet PO PRN (15:15)
[2020-04-11] MEDS ORDERED: ALEN35TA21 PO (15:40)
[2020-04-11] MEDS ORDERED: iohexol 350MG/ML 100ml bottle IV ONE ×2 (16:10→18:18)
[2020-04-11] MEDS ORDERED: LIDOcaine 1% (10mg/ml)w/preservative injection 20ml MDV ONE (16:10)
[2020-04-11] MEDS ORDERED: midazolam 2 mg/2 ml injection ONE ×2 (17:37→18:34)
[2020-04-11] MEDS ORDERED: fentaNYL/PF 50MCG/1 ML 2ML syringe ONE (17:37)
[2020-04-11] MEDS ORDERED: iohexol 350 MG/ML 50ML vial IV ONE (18:18)
[2020-04-11] MEDS ORDERED: heparin 1,000unit/ml 10ml vial 10 ML ONE (18:18)
[2020-04-11] MEDS ORDERED: clopidogrel 300mg tablet ONE (18:44)
[2020-04-11] MEDS ORDERED: HYDROcodone/acetaminophen 5mg/325mg tablet PO PRN (19:40)
[2020-04-11] MEDS ORDERED: ondansetron/PF 4mg/2ml inj IV PRN (19:40)
[2020-04-11] MEDS ORDERED: OXAZEpam 15mg capsule PO PRN (19:40)
[2020-04-11] MEDS ORDERED: proCHLORperazine 10 MG/2 ml inj IV PRN (19:40)
[2020-04-11] MEDS ORDERED: HYDROcodone/acetaminophen 10/325mg tab PO PRN (19:40)
--- NOTE | 2020-04-11 21:00 | NUR ---
Patient in room MED 311. I have received report from BRITT PERDUE and had the opportunity to ask questions and assume patient care.
--- NOTE | 2020-04-11 21:15 | NUR ---
PT AND REPORT TO BRETT PERDUE AND RADHA RN, IN ACCE, ROOM 311. OBSERVED SITE, CARLOS CDI AND FEMSTOP IN PLACE. VS STABLE. FAMILY TO COME AT 1100 TO EMR ANALYST PT. NUMBERS IN CHART. DR GUERRERO AWARE. ORDERS IN CHART.
--- NOTE | 2020-04-12 00:33 | NUR ---
PHYSICAL ASSESSMENT PERFORMED, VITAL SIGNS DOCUMENTED,NO NOTED BLEEDING S/P REMOVING FEMSTOP. PATIENT UP TO COMMODE, WILL DISCHARGE PER MD ORDERS TO HOME.
== END 2020-04-11 23:45 | disposition home or self-care (01) ==
LOC: SSTAY O 14:45 → MED 3N 21:37
PROVIDERS: ADMIT Internal Medicine Interventional Cardiology; ATTEND Internal Medicine Interventional Cardiology
DX: I25.718 Atherosclerosis of autologous vein coronary artery bypass graft(s) with other forms of angina pectoris (principal); I25.2 Old myocardial infarction; I70.213 Atherosclerosis of native arteries of extremities with intermittent claudication, bilateral legs; I65.23 Occlusion and stenosis of bilateral carotid arteries; I63.49 Cerebral infarction due to embolism of other cerebral artery; I10 Essential (primary) hypertension; Z86.73 Personal history of transient ischemic attack (TIA), and cerebral infarction without residual deficits; I70.1 Atherosclerosis of renal artery; E78.49 Other hyperlipidemia; I70.0 Atherosclerosis of aorta; R94.30 Abnormal result of cardiovascular function study, unspecified; D64.9 Anemia, unspecified; E11.9 Type 2 diabetes mellitus without complications; Z95.1 Presence of aortocoronary bypass graft; Z79.82 Long term (current) use of aspirin; Z79.899 Other long term (current) drug therapy; Z88.5 Allergy status to narcotic agent
CPT/HCPCS: 36415; 80048; 85025; 85610; 85730; 93005; 93459; 93567; C1725; C1760; C1769; C1874; C9604; G0378; J1644; J2001; J2250; J3010; J7030; Q9967; 99152; 99153; A4620; A6258; C1751

== ENCOUNTER 2022-02-10 17:25 | Inpatient (IN) | payer MEDICARE, MEDICAID ==
[~2022-02-10] VITALS: Ht 152.4 cm; Wt 57.3 kg
[~2022-02-10 17:25] MED LIST changes: +ALEN35TA53 PO; -OXYC-511 PO; +OXYC1TAB17 PO
[2022-02-10] MEDS ORDERED: heparin 10,000 units/1 ML INJ IV ONE ×3 (17:40→18:15)
[2022-02-10 17:58] LABS: BASOPHILS % (AUTO) 0.6 % (0-1); EOSINOPHILS # (AUTO) 0.1 X10'3 (0-0.9); EOSINOPHILS % (AUTO) 1.3 % (0-6); HEMATOCRIT 32.6 % (35.0-45.0); HEMOGLOBIN 10.9 g/dl (12.0-16.0); LYMPHOCYTES % (AUTO) 24.8 % (21-51); MEAN CORPUSCULAR HEMOGLOBIN 31.5 PG (27.0-31.0); MEAN CORPUSCULAR HGB CONC 33.5 g/dL (33.0-36.5); MEAN PLATELET VOLUME 7.3 FL (7.4-10.4); MONOCYTES # (AUTO) 0.7 X10'3 (0-0.9); MONOCYTES % (AUTO) 7.9 % (2-12); NEUTROPHILS # (AUTO) 5.4 X10'3 (1.8-7.7); NEUTROPHILS % (AUTO) 65.4 % (42-75); PLATELET COUNT 216 X10'3 (140-440); RED BLOOD COUNT 3.47 X10'6 (4.20-5.60); RED CELL DISTRIBUTION WIDTH 14.1 % (11.5-14.5); WHITE BLOOD COUNT 8.3 X10'3 (4.5-11.0)
[2022-02-10] MEDS ORDERED: fentaNYL/PF 50MCG/1 ML 2ML syringe IV ONE (18:05)
--- NOTE | 2022-02-10 18:05 | NUR ---
Dr. Menezes at bedside. Orders to wait for Coags to come back before initiating Heparin gtt.
[2022-02-10 18:13] LABS: APTT 24 SECONDS (22-32)
[2022-02-10 18:15] LABS: ALANINE AMINOTRANSFERASE 13 U/L (12-78); ALBUMIN 3.8 G/DL (3.4-5.0); ALBUMIN/GLOBULIN RATIO 1.2 (1.1-1.5); ALKALINE PHOSPHATASE 46 IU/L (46-116); ANION GAP 9 (8-16); ASPARTATE AMINO TRANSFERASE 24 U/L (10-37); BILIRUBIN,TOTAL 0.4 MG/DL (0.1-1.0); BLOOD UREA NITROGEN 25 MG/DL (7-18); BUN/CREATININE RATIO 17.4 (6.6-38.0); CALCIUM 8.5 MG/DL (8.5-10.1); CHLORIDE 107 MMOL/L (99-107); CREATININE 1.44 MG/DL (0.40-0.90); GLUCOSE 92 MG/DL (70-104); POTASSIUM 5.2 MMOL/L (3.5-5.1); SODIUM 142 MMOL/L (135-145); TOTAL CARBON DIOXIDE 26.3 MMOL/L (24-32); TOTAL PROTEIN 6.9 G/DL (6.4-8.2); eGFR 36 ML/MIN
[2022-02-10] MEDS ORDERED: heparin 25,000 UNIT/250ml bag 250 ML IV SCH (18:15)
[2022-02-10] MEDS ORDERED: heparin 10,000 units/1 ML INJ IV PRN (18:15)
[2022-02-10] MEDS ORDERED: iohexol 350 MG/ML 50ML vial IV ONE (18:58)
[2022-02-10] MEDS ORDERED: iohexol 350MG/ML 100ml bottle IV ONE (18:58)
[2022-02-10] MEDS ORDERED: fentaNYL/PF 50MCG/1 ML 2ML syringe ONE (19:38)
[2022-02-10] MEDS ORDERED: heparin 1,000 UNITS/NS 500ml 500 ML ONE (19:38)
[2022-02-10] MEDS ORDERED: iohexol 300mg/ml 100ml inj. ONE (19:38)
[2022-02-10] MEDS ORDERED: LIDOCAINE 1% w/preservative (10 MG/ML) inj. 10mL VIAL ONE (19:39)
[2022-02-10] MEDS: heparin 25,000 UNIT/250ml bag 250 ML IV SCH (20:24)
--- NOTE | 2022-02-10 20:30 | NUR ---
pt taken to IR
[2022-02-10] MEDS ORDERED: midazolam 1 mg/ML 2ml injection ONE (20:49)
[2022-02-10] MEDS ORDERED: glycopyrrolate 0.2mg/ml inj ONE (22:10)
[2022-02-10] MEDS ORDERED: rocuronium 10mg/ml inj IV ONE ×2 (22:10→22:58)
[2022-02-10] MEDS ORDERED: ringers solution, lacted 1,000 ML IV SCH (22:10)
[2022-02-10] MEDS ORDERED: hydrALAZINE 20mg/ml inj. IV ONE (22:10)
[2022-02-10] MEDS ORDERED: fentaNYL/PF 50MCG/1 ML 2ML syringe IV PRN ×2 (22:10)
[2022-02-10] MEDS ORDERED: sevoflurane 250ml liquid IH ONE (22:10)
[2022-02-10] MEDS ORDERED: labetalol 20mg/4ml (5mg/ml) syringe IV PRN (22:10)
[2022-02-10] MEDS ORDERED: morphine 2 MG/ML inj. syringe IV PRN (22:10)
[2022-02-10] MEDS ORDERED: neostigmine methylsulfate 1 MG/ML 10ml vial ONE (22:10)
[2022-02-10] MEDS ORDERED: dexamethasone sod phosphate 10mg/ml inj ONE (22:10)
[2022-02-10] MEDS ORDERED: ondansetron/PF 4mg/2ml inj IV PRN (22:10)
[2022-02-10] MEDS ORDERED: morphine 4 MG/ML inj SYRINge IV PRN (22:10)
[2022-02-10] MEDS ORDERED: heparin 10,000 units/1 ML INJ ONE (22:13)
[2022-02-10] MEDS ORDERED: FENTANYL CITRATE/PF 50 MCG/1 ML VIAL ONE (22:44)
[2022-02-10] MEDS ORDERED: ceFAZolin 1000mg inj ONE ×2 (22:56)
[2022-02-10] MEDS ORDERED: propofol inj 20 ML IV ONE (22:58)
[2022-02-10] MEDS ORDERED: LIDOcaine 2% (20mg/ml) 5ml vial ONE (22:58)
[2022-02-10] MEDS ORDERED: ondansetron/PF 4mg/2ml inj ONE (22:59)
[2022-02-10] MEDS ORDERED: heparin 1,000unit/ml 10ml vial 10 ML ONE (23:45)
[2022-02-10] MEDS ORDERED: albumin (Human) 5% 250ml 250 ML IV ONE (23:52)
[2022-02-10] MEDS ORDERED: ePHEDrine 50MG/ML INJ. ONE (23:54)
[2022-02-11] VITALS (36 sets, daily range): BP systolic 101–190; BP diastolic 30–65
[2022-02-11] MEDS ORDERED: labetalol 20mg/4ml (5mg/ml) syringe IV ONE (00:21)
[2022-02-11] MEDS ORDERED: albumin (Human) 5% 250ml 0 ML IV ONE (00:22)
[2022-02-11] MEDS ORDERED: ondansetron/PF 4mg/2ml inj IV PRN (01:00)
[2022-02-11] MEDS ORDERED: midazolam 100mg in NS 100ml 100 ML IV SCH (01:15)
[2022-02-11] MEDS ORDERED: protamine sulfate 10mg/ml inj. ONE (01:29)
--- NOTE | 2022-02-11 02:05 | NUR ---
Received from OR via OR TO ROOM 2038 , accompanied by Anesthesiologist DR ANN and report given by Anesthesiologist. PT PRESENTS WITH 22 G RIGHT FOREARM, ART LINE LEFT WRIST, TRIPLE LUMEN CENTRAL LINE, TEMP CASTILLO CATHETER, WOUND VAC TO LEFT GROIN SETTINGS 125MMHG, PT IS ON VENT. SETTING PER RT AT BEDSIDE. VSS. Addendum: 02/11/22 at 0337 by Rita Stanley RN, RN Amended: Links added.
[2022-02-11] MEDS: FENTANYL-0.9 % NACL/PF 100 ML IV PRN ×2 (02:22→10:23)
[2022-02-11 02:25] LABS: APTT > 139 SECONDS (22-32)
[2022-02-11] MEDS: hydrALAZINE 20mg/ml inj. IV PRN ×3 (02:31→02:51)
[2022-02-11 02:49] LABS: BASOPHILS % (AUTO) 0.5 % (0-1); EOSINOPHILS % (AUTO) 0.3 % (0-6); HEMATOCRIT 26.4 % (35.0-45.0); HEMOGLOBIN 8.7 g/dl (12.0-16.0); LYMPHOCYTES % (AUTO) 14.7 % (21-51); MEAN CORPUSCULAR HEMOGLOBIN 30.7 PG (27.0-31.0); MEAN CORPUSCULAR HGB CONC 32.9 g/dL (33.0-36.5); MEAN CORPUSCULAR VOLUME 93.6 FL (78-98); MEAN PLATELET VOLUME 7.6 FL (7.4-10.4); MONOCYTES # (AUTO) 0.1 X10'3 (0-0.9); MONOCYTES % (AUTO) 1.7 % (2-12); NEUTROPHILS # (AUTO) 5.7 X10'3 (1.8-7.7); NEUTROPHILS % (AUTO) 82.8 % (42-75); PLATELET COUNT 143 X10'3 (140-440); RED BLOOD COUNT 2.82 X10'6 (4.20-5.60); RED CELL DISTRIBUTION WIDTH 14.3 % (11.5-14.5); WHITE BLOOD COUNT 6.9 X10'3 (4.5-11.0)
[2022-02-11 02:51] LABS: ABG HCO3 17.5 mmol/L (22.0-26.0); ABG OXYGEN SATURATION 98.6 % (94-97); ABG PCO2 (T) 28.3 mmHg (32.0-45.0); ABG PO2 (T) 336.2 mmHg (75.0-100.0); FCOHb 0.3 % (0.0-3.9); FO2Hb 98.3 % (94-97); PATIENT TEMPERATURE 34.5; PEEP 5 cm H2O; RESPIRATORY RATE 10 b/min; TIDAL VOLUME 500 mL; TOTAL HEMOGLOBIN 8.9 G/dl (12.0-16.0)
--- NOTE | 2022-02-11 03:25 | NUR ---
Report GIVEN to receiving nurse ROBEL PERDUE. PT RECOVERED IN ROOM 2038, Belongings CAME UP FROM ER. PT CARE TRANSFERED TO RUPERT PERDUE,INSPETIONS OF PT INCLUDED LEFT LEG DOPLER PEDAL PULSES CHECKED, LEFT GROIN WOUND VAC CHECKED, LEFT LEG OP-SITE VIEWED WITH SCANT BLOOD NOTED. Special Issues communicated to receiving nurse. Addendum: 02/11/22 at 0355 by Rita Stanley RN, RN Amended: Links added.
--- NOTE | 2022-02-11 05:18 | NUR ---
MD Murillo call and made aware that dorsalis pulse of the left low extremity is very faint. Foot is cold.Made aware of the recent aPTT value of 29. Order for stat doppler study.
[2022-02-11] MEDS ORDERED: ISOS30TA84 PO (06:13)
[2022-02-11] MEDS ORDERED: PREG75CA75 PO (06:13)
[2022-02-11] MEDS ORDERED: CHOL500050 PO (06:13)
[2022-02-11] MEDS ORDERED: CLOP75TA34 PO (06:13)
[2022-02-11] MEDS ORDERED: CARB1TAB36 PO (06:13)
[2022-02-11] MEDS ORDERED: ATOR40TA72 PO (06:13)
[2022-02-11] MEDS ORDERED: LIDO76.5 TOP (06:13)
--- NOTE | 2022-02-11 07:31 | NUR ---
Initial: Pt admitted w/ LLE ischemia, required emergent revascularization and fasciotomy per EMR, remains intubated and sedated. Recommend advancing to Regular diet upon extubation, or initiation of nutrition support if expected to remain ventilated. Limited nutrition interventions available at this time, will continue to monitor. Recs: 1. Advance to Regular diet upon extubation, consider addition of Apn 2. If to remain intubated, Continuous TF using Vital AF at 45ml/hr 3. IF TF, additional water flush 100ml Q4H 4. IF TF, PALB Q / 5. Bowel care per rx 6. Scaled wt this admit; subsequent weekly wts Addendum: 02/11/22 at [address] Amended: Links added.
[2022-02-11] MEDS ORDERED: albumin (Human) 5% 250ml 250 ML IV ONE ×5 (07:40→23:20)
[2022-02-11] MEDS ORDERED: heparin 25,000 UNIT/250ml bag 250 ML IV SCH (07:45)
[2022-02-11] MEDS ORDERED: heparin 10,000 units/1 ML INJ IV PRN (07:45)
[2022-02-11] MEDS ORDERED: heparin 10,000 units/1 ML INJ IV ONE (07:45)
[2022-02-11] MEDS: heparin 25,000 UNIT/250ml bag 250 ML IV SCH (08:12)
[2022-02-11] MEDS: ceFAZolin/D5W- 1GM premix 50 ML IV SCH ×2 (08:55)
[2022-02-11] MEDS ORDERED: iohexol 350 MG/ML 50ML vial IV ONE (09:04)
[2022-02-11] MEDS ORDERED: iohexol 350MG/ML 100ml bottle IV ONE (09:04)
--- NOTE | 2022-02-11 10:06 | NUR ---
CTA from [id number].
[2022-02-11] MEDS ORDERED: calcium chloride 100 MG/1 ML inj IV ONE (11:59)
[2022-02-11] MEDS ORDERED: amiodarone 50MG/ML inj IV ONE (11:59)
[2022-02-11] MEDS ORDERED: atropine 0.1mg/ml 10ml syringe ONE (11:59)
[2022-02-11] MEDS ORDERED: epiNEPHrine 0.1mg/ml 10ml syringe ONE (11:59)
--- NOTE | 2022-02-11 12:01 | NUR ---
Dr. Murillo in to see pt. Stated CTA looked ok and pt. can be extubated. RN notified Dr. Wolf. Sedation turned off.
[2022-02-11 13:38] LABS: ALBUMIN 4.4 G/DL (3.4-5.0); ANION GAP 14 (8-16); BLOOD UREA NITROGEN 17 MG/DL (7-18); BUN/CREATININE RATIO 15.9 (6.6-38.0); CALCIUM 6.2 MG/DL (8.5-10.1); CHLORIDE 112 MMOL/L (99-107); CREATININE 1.07 MG/DL (0.40-0.90); GLUCOSE 146 MG/DL (70-104); POTASSIUM 4.4 MMOL/L (3.5-5.1); SODIUM 147 MMOL/L (135-145); TOTAL CARBON DIOXIDE 21.2 MMOL/L (24-32); eGFR 50 ML/MIN
--- NOTE | 2022-02-11 13:53 | NUR ---
Weaning parameters obtained and shown to Dr. Wolf. Extuabation order received.
--- NOTE | 2022-02-11 14:39 | NUR ---
Pt. extubated at 1402.
--- NOTE | 2022-02-11 15:48 | NUR ---
RN called Dr. Murillo for pain meds as pt. yells out when pulses are doppler'd.
[2022-02-11] MEDS: HYDROmorphone inj. 0.5 MG/0.5 ML DISP.SYRIN IV PRN ×2 (16:49→21:37)
--- NOTE | 2022-02-11 17:13 | NUR ---
Dr. Wolf notified of low BP (Diastolic 30s) and that pt. responded to Albumin this am. Order rec'd for 1L LR bolus.
[2022-02-11] MEDS ORDERED: ringers solution, lacted 1,000 ML IV ONE (17:15)
--- NOTE | 2022-02-11 17:54 | NUR ---
Temp this morning at shift change was 34. Dulce Maria meredith was placed on pt. who is now normotensive.
--- NOTE | 2022-02-11 18:30 | NUR ---
Patient in room ICU 2038. I have received report from Shanika PERDUE and had the opportunity to ask questions and assume patient care.
[2022-02-11] MEDS ORDERED: NORepinephrine 8mg/ 250ml NS 250 ML IV ONE (23:38)
--- NOTE | 2022-02-11 23:54 | NUR ---
RN IS TO DOCUMENT YES TO ALL APPLICABLE AREAS Pronouncement of : 1. Time Physician Notified: Dr. Murillo at bedside 2. Date of :02/11/22 3. Time of : 2353 4. DNR/Withdraw life support documented: N/A 5. Monitor strip has been placed on chart: Yes 6. Assessment process is of one-minute duration and includes following criteria: y a) Patient is unresponsive to all stimuli: y b) Pupils fixed and non-reactive:y c) Auscultation of precordium reveals absence of heart tones:y d) Auscultation of lungs reveals absence of breath sounds:y e) Absence of blood pressure / all vital signs:y f) QRS complexes are not present on monitor / EKG strip:y g) Pacer spikes without capture:y 4. Comments:
[2022-02-11 23:59] LABS: BASOPHILS % (AUTO) 0.1 % (0-1); EOSINOPHILS % (AUTO) 0 % (0-6); LYMPHOCYTES # (AUTO) 3.4 X10'3 (1.1-4.8); LYMPHOCYTES % (AUTO) 31.7 % (21-51); MEAN CORPUSCULAR HEMOGLOBIN 32.1 PG (27.0-31.0); MEAN CORPUSCULAR HGB CONC 32.5 g/dL (33.0-36.5); MEAN CORPUSCULAR VOLUME 98.9 FL (78-98); MONOCYTES # (AUTO) 0.4 X10'3 (0-0.9); MONOCYTES % (AUTO) 3.7 % (2-12); NEUTROPHILS # (AUTO) 6.9 X10'3 (1.8-7.7); NEUTROPHILS % (AUTO) 64.5 % (42-75); PLATELET COUNT 119 X10'3 (140-440); RED BLOOD COUNT 2.13 X10'6 (4.20-5.60); RED CELL DISTRIBUTION WIDTH 14.8 % (11.5-14.5); WHITE BLOOD COUNT 10.7 X10'3 (4.5-11.0)
[2022-02-12 00:03] LABS: HEMOGLOBIN 6.8 g/dl (12.0-16.0)
[2022-02-12 00:04] LABS: HEMATOCRIT 21.1 % (35.0-45.0)
[2022-02-12 00:06] LABS: ALANINE AMINOTRANSFERASE 19 U/L (12-78); ALBUMIN 4.2 G/DL (3.4-5.0); ALBUMIN/GLOBULIN RATIO 2.8 (1.1-1.5); ALKALINE PHOSPHATASE 21 IU/L (46-116); ANION GAP 11 (8-16); ASPARTATE AMINO TRANSFERASE 60 U/L (10-37); BILIRUBIN,TOTAL 0.5 MG/DL (0.1-1.0); BLOOD UREA NITROGEN 20 MG/DL (7-18); BUN/CREATININE RATIO 12.2 (6.6-38.0); CALCIUM 6.6 MG/DL (8.5-10.1); CHLORIDE 116 MMOL/L (99-107); CREATININE 1.64 MG/DL (0.40-0.90); GLUCOSE 194 MG/DL (70-104); MAGNESIUM 1.8 MG/DL (1.5-2.4); POTASSIUM 5.7 MMOL/L (3.5-5.1); SODIUM 148 MMOL/L (135-145); TOTAL CARBON DIOXIDE 21.2 MMOL/L (24-32); TOTAL PROTEIN 5.7 G/DL (6.4-8.2); eGFR 31 ML/MIN
--- NOTE | 2022-02-12 00:46 | NUR ---
At 2330 a code blue was called due to patient HR slowing down to 50's bradycardia with signs of PEA. Atropine 1mg was given along with code blue initiated including CPR and ambubag. See Code blue record for details of code. Official time of 2354.
--- NOTE | 2022-02-12 02:20 | NUR ---
[employer] arrived and assumed care of patient.
== END 2022-02-12 02:36 | DRG 270 ==
LOC: ER 17:26 → ICU 2S 02-11 03:57
PROVIDERS: ADMIT Surgery; ATTEND Surgery
PROC: B41D1ZZ Fluoroscopy of Aorta and Bilateral Lower Extremity Arteries using Low Osmolar Contrast (ICD-10-PCS; 2022-02-10)
PROC: 02HV33Z Insertion of Infusion Device into Superior Vena Cava, Percutaneous Approach (ICD-10-PCS; 2022-02-10)
PROC: B548ZZA Ultrasonography of Superior Vena Cava, Guidance (ICD-10-PCS; 2022-02-10)
PROC: 03HY32Z Insertion of Monitoring Device into Upper Artery, Percutaneous Approach (ICD-10-PCS; 2022-02-10)
PROC: 047D3DZ Dilation of Left Common Iliac Artery with Intraluminal Device, Percutaneous Approach (ICD-10-PCS; principal; 2022-02-10 22:10)
PROC: 04CJ0ZZ Extirpation of Matter from Left External Iliac Artery, Open Approach (ICD-10-PCS; 2022-02-11)
PROC: 04CL0ZZ Extirpation of Matter from Left Femoral Artery, Open Approach (ICD-10-PCS; 2022-02-11)
PROC: 04UL0KZ Supplement Left Femoral Artery with Nonautologous Tissue Substitute, Open Approach (ICD-10-PCS; 2022-02-11)
PROC: 04UJ0KZ Supplement Left External Iliac Artery with Nonautologous Tissue Substitute, Open Approach (ICD-10-PCS; 2022-02-11)
PROC: 04CL0ZZ Extirpation of Matter from Left Femoral Artery, Open Approach (ICD-10-PCS; 2022-02-11)
PROC: B4201ZZ Computerized Tomography (CT Scan) of Abdominal Aorta using Low Osmolar Contrast (ICD-10-PCS; 2022-02-11)
PROC: B4241ZZ Computerized Tomography (CT Scan) of Superior Mesenteric Artery using Low Osmolar Contrast (ICD-10-PCS; 2022-02-11)
PROC: B4281ZZ Computerized Tomography (CT Scan) of Bilateral Renal Arteries using Low Osmolar Contrast (ICD-10-PCS; 2022-02-11)
PROC: B42C1ZZ Computerized Tomography (CT Scan) of Pelvic Arteries using Low Osmolar Contrast (ICD-10-PCS; 2022-02-11)
PROC: B42H1ZZ Computerized Tomography (CT Scan) of Bilateral Lower Extremity Arteries using Low Osmolar Contrast (ICD-10-PCS; 2022-02-11)
PROC: B4211ZZ Computerized Tomography (CT Scan) of Celiac Artery using Low Osmolar Contrast (ICD-10-PCS; 2022-02-11)
PROC: 5A12012 Performance of Cardiac Output, Single, Manual (ICD-10-PCS; 2022-02-12)
PROC: 5A2204Z Restoration of Cardiac Rhythm, Single (ICD-10-PCS; 2022-02-12)
DX: T82.898A Other specified complication of vascular prosthetic devices, implants and grafts, initial encounter (principal); J96.00 Acute respiratory failure, unspecified whether with hypoxia or hypercapnia; N17.9 Acute kidney failure, unspecified; E11.51 Type 2 diabetes mellitus with diabetic peripheral angiopathy without gangrene; E78.00 Pure hypercholesterolemia, unspecified; Z20.822 Contact with and (suspected) exposure to COVID-19; E78.5 Hyperlipidemia, unspecified; I70.222 Atherosclerosis of native arteries of extremities with rest pain, left leg; Y83.2 Surgical operation with anastomosis, bypass or graft as the cause of abnormal reaction of the patient, or of later complication, without mention of misadventure at the time of the procedure; R68.0 Hypothermia, not associated with low environmental temperature; G89.29 Other chronic pain; M19.90 Unspecified osteoarthritis, unspecified site; I12.9 Hypertensive chronic kidney disease with stage 1 through stage 4 chronic kidney disease, or unspecified chronic kidney disease; E11.22 Type 2 diabetes mellitus with diabetic chronic kidney disease; N18.30 Chronic kidney disease, stage 3 unspecified; I25.10 Atherosclerotic heart disease of native coronary artery without angina pectoris; I46.9 Cardiac arrest, cause unspecified; J44.9 Chronic obstructive pulmonary disease, unspecified; I25.2 Old myocardial infarction; Z86.73 Personal history of transient ischemic attack (TIA), and cerebral infarction without residual deficits; Z87.891 Personal history of nicotine dependence; Z95.1 Presence of aortocoronary bypass graft; Z88.5 Allergy status to narcotic agent; Z83.3 Family history of diabetes mellitus; Z80.9 Family history of malignant neoplasm, unspecified; Z79.899 Other long term (current) drug therapy; Z79.82 Long term (current) use of aspirin; Y92.89 Other specified places as the place of occurrence of the external cause
CPT/HCPCS: 36415; 36600; 37221; 71045; 73706; 80048; 80053; 82803; 82948; 83735; 84443; 84484; 85018; 85025; 85384; 85610; 85730; 86885; 86900; 86901; 86920; 87081; 87635; 88300; 88304; 92950; 93005; 93306; 93308; 93926; 93971; 94002; 94003; 94760; 94799; 99152; 99153; 99285; A4618; A6258; A6455; A7000; C1758; C1768; C9803; G0378; J0171; J0282; J0360; J0461; J0690; J1100; J1170; J1644; J2250; J2405; J2704; J2710; J2720; J3010; J3490; J7030; J7040; J7120; P9045; Q9967